=== PATIENT | male | born 1985 | race Hispanic/Latino ===

== ENCOUNTER 2016-11-26 22:25 | Emergency (ER) | payer OTHER ==
[2016-11-26 23:14] VITALS: BP 140/89; PULSE 86; RESP 16; TEMP 98.3; O2SAT 99
--- NOTE | 2016-11-27 00:35 | ED PDOC ---
Upper Extremity Pain/Injury Time Seen by Provider: 11/27/16 00:22 Chief Complaint (Nursing): Finger,Hand,&Wrist Chief Complaint (Provider): finger laceration History Per: Patient History/Exam Limitations: no limitations Onset/Duration Of Symptoms: Hrs Current Symptoms Are (Timing): Still Present Additional History Per: Patient Additional Complaint(s): 31 y/o male presents with laceration to left hand 3rd digit sustained prior to arrival. Patient states he accidentally sliced his finger with a knife while cutting an apple. Denies numbness/weakness left upper etxremity, limitation of movement. Tetanus up to date. Past Medical History Reviewed: Historical Data, Nursing Documentation, Vital Signs Vital Signs: Last Vital Signs Temp 98.3 F 11/26/16 23:10 Pulse 86 11/26/16 23:10 Resp 16 11/26/16 23:10 BP 140/89 11/26/16 23:10 Pulse Ox 99 11/26/16 23:10 - Medical History PMH: No Chronic Diseases - Surgical History Surgical History: No Surg Hx - Family History Family History: States: Unknown Family Hx - Living Arrangements Living Arrangements: With Family - Allergies Allergies/Adverse Reactions: Allergies Allergy/AdvReac Type Severity Reaction Status Date / Time No Known Allergies Allergy Verified 11/26/16 23:13 Review of Systems ROS Statement: Except As Marked, All Systems Reviewed And Found Negative Musculoskeletal: Positive for: Hand Pain (left hand 3rd digit) Physical Exam - Reviewed Nursing Documentation Reviewed: Yes Vital Signs Reviewed: Yes - Physical Exam Appears: Positive for: Well, Non-toxic, No Acute Distress Pulses-Radial (L): 2+ Pulses-Radial (R): 2+ Extremity: Positive for: Normal ROM, Capillary Refill (<2 sec b/l UE), Other ( left hand 3rd digit middle phalanx 0.5cm superficial laceration. Distal NV, motor intact.) Neurologic/Psych: Negative for: Motor/Sensory Deficits - ECG O2 Sat by Pulse Oximetry: 99 - Progress ED Course And Treament: Wound irrigated with 250mL NS. Steristrips applied to close wound, finger placed in splint. Patient educated on wound care. Follow up PMD 2-3 days. Return to ED for fever, increased pain/redness/ at site, discharge from site, or other concerning symptoms. Disposition - Clinical Impression Clinical Impression: Finger laceration - Patient ED Disposition Is Patient to be Admitted: No Counseled Patient/Family Regarding: Diagnosis, Need For Followup - Disposition Disposition: Routine/Home Disposition Time: 00:35 Condition: GOOD Instructions: Laceration (ED), Steristrips (ED) Forms: [facility] ED School/Work Excuse
== END 2016-11-27 01:22 | disposition home or self-care (01) ==
LOC: H.ER 22:25
DX: S61.219A Laceration without foreign body of unspecified finger without damage to nail, initial encounter (principal); W26.0XXA Contact with knife, initial encounter; Y92.89 Other specified places as the place of occurrence of the external cause